=== PATIENT | male | born 1980 | race Caucasian/White ===

== ENCOUNTER 2018-11-09 15:37 | Emergency (ER) | payer OTHER ==
[2018-11-09] MEDS ORDERED: SODIUM CHLORIDE 1,000 ML IV STA (15:49)
[2018-11-09] MEDS ORDERED: KETOROLAC TROMETHAMINE 30 MG/1 ML VIAL IVPUSH ONE (15:49)
[2018-11-09 15:50] VITALS: BP 143/85; PULSE 80; TEMP 98.1; BMI 32.0
--- NOTE | 2018-11-09 15:50 | PDOC ---
Rapid Medical Evaluation Chief Complaint: Pain, Acute Time Seen by Provider: 11/09/18 15:45 Medical Evaluation: 11/09/18 15:46 I have performed a brief in-person evaluation of this patient. The patient presents with a chief complaint of:sudden onset severe L flank pain today. No pmhx Pertinent physical exam findings:lorena very uncomfortable, stable I have ordered the following:labs/ua The patient will proceed to the ED for further evaluation. Discharge Disposition - Diagnosis Left flank pain - Referrals - Patient Instructions - Post Discharge Activity
[2018-11-09] MEDS ORDERED: KETOROLAC TROMETHAMINE 30 MG/1 ML VIAL ONE (15:56)
[2018-11-09 16:08] LABS: BASO % 0.2 % (0-2.0); EOS % 0.1 % (0-4.5); HEMATOCRIT 43.7 % (35.4-49); HEMOGLOBIN 15.4 GM/dL (11.7-16.9); MCH 30.7 pg (25.7-33.7); MCHC 35.3 g/dl (32.0-35.9); MEAN PLT VOLUME 9.1 fl (7.5-11.1); MONO % 4.9 % (3.8-10.2); NEUT % 84.8 % (42.8-82.8); PLATELET COUNT 234 K/MM3 (134-434); RBC 5.02 M/mm3 (4.00-5.60); RDW 12.1 % (11.9-15.9); WHITE BLOOD COUNT 14.1 K/mm3 (4.0-10.0)
[2018-11-09 16:51] LABS: ALBUMIN 4.4 g/dl (3.4-5.0); ALK PHOS 94 U/L (45-117); ANION GAP 8 MMOL/L (8-16); BILIRUBIN,TOTAL 0.6 mg/dL (0.2-1); BLOOD UREA NITROGEN 20 mg/dL (7-18); CALCIUM 9.1 mg/dL (8.5-10.1); CHLORIDE 101 mmol/L (98-107); CO2 27 mmol/L (21-32); CREATININE 1.2 mg/dL (0.55-1.3); GLUCOSE,RANDOM 96 mg/dL (74-106); SGPT/ALT 30 U/L (13-61); SODIUM 136 mmol/L (136-145); TOT PROT 7.8 g/dl (6.4-8.2)
[2018-11-09 16:52] LABS: POTASSIUM 4.1 mmol/L (3.5-5.1); SGOT/AST 34 U/L (15-37)
[2018-11-09 17:59] LABS: URINE APPEARANCE CLEAR; URINE BILIRUBIN NEGATIVE (<2.0 mg/dL); URINE COLOR YELLOW; URINE GLUCOSE (UA) NEGATIVE (NEGATIVE); URINE KETONE TRACE (NEGATIVE); URINE LEUK ESTERASE NEGATIVE (NEGATIVE); URINE NITRITE NEGATIVE (NEGATIVE); URINE PROTEIN 1+ (NEGATIVE); URINE UROBILINOGEN NEGATIVE mg/dL (0.2-1.0)
[2018-11-09 18:05] LABS: URINE MUCUS RARE
--- NOTE | 2018-11-09 18:42 | PDOC ---
History of Present Illness - General Chief Complaint: Pain, Acute Stated Complaint: LT SIDE ABD PAIN Time Seen by Provider: 11/09/18 15:45 History Source: Patient Exam Limitations: No Limitations - History of Present Illness Initial Comments: 11/09/18 18:38 38-year-old male no past medical history here today complaining of left flank and left lower quadrant pain. Patient states his symptoms started earlier today initially was in the left lower back area was dull and achy but then became very sharp radiating to his groin. Patient states the pain was severe not worse with any certain movements no fever no chills did have nausea but no vomiting. Denies any hematuria or other dysuria. He does have an episode several months ago when he had painless hematuria. He did see Saúl Grant for that and was evaluated renal ultrasound which was unremarkable. He does also report that he had a colonoscopy performed one week ago which was also unremarkable Past History - Past Medical History Allergies/Adverse Reactions: Allergies Allergy/AdvReac Type Severity Reaction Status Date / Time No Known Allergies Allergy Verified 11/09/18 15:51 Home Medications: Ambulatory Orders Ibuprofen [Motrin -] 600 mg PO TID PRN #90 tablet MDD 3 11/09/18 - Suicide/Smoking/Psychosocial Hx Smoking History: Never smoked Have you smoked in the past 12 months: No Information on smoking cessation initiated: No Hx Alcohol Use: No Drug/Substance Use Hx: No Review of Systems - Review of Systems Constitutional: No: Diaphoresis HEENTM: No: Eye Pain Respiratory: No: Cough, Orthopnea Cardiac (ROS): No: Chest Pain, Edema Musculoskeletal: Yes: Back Pain. No: Gout All Other Systems: Reviewed and Negative *Physical Exam - Vital Signs Last Vital Signs Temp Pulse Resp BP Pulse Ox 98.1 F 80 20 143/85 98 11/09/18 15:45 11/09/18 15:45 11/09/18 15:45 11/09/18 15:45 11/09/18 15:45 - Physical Exam General Appearance: Yes: Nourished Neck: positive: Trachea midline Respiratory/Chest: positive: Lungs Clear, Normal Breath Sounds Cardiovascular: positive: Regular Rhythm, Regular Rate, S1, S2. negative: Edema Gastrointestinal/Abdominal: positive: Normal Bowel Sounds, Flat, Soft. negative : Tender Musculoskeletal: negative: CVA Tenderness Integumentary: positive: Normal Color, Dry, Warm Neurologic: positive: Fully Oriented, Alert, Normal Mood/Affect Moderate Sedation - Procedure Monitoring Vital Signs: Procedure Monitoring Vital Signs Temperature 98.1 F 11/09/18 15:45 Pulse Rate 80 11/09/18 15:45 Respiratory Rate 20 11/09/18 15:45 Blood Pressure 143/85 11/09/18 15:45 O2 Sat by Pulse Oximetry (%) 98 11/09/18 15:45 ED Treatment Course - LABORATORY CBC & Chemistry Diagram: 11/09/18 15:55 11/09/18 15:55 - ADDITIONAL ORDERS Additional order review: Laboratory Results 11/09/18 11/09/18 17:50 15:55 Sodium 136 Potassium 4.1 Chloride 101 Carbon Dioxide 27 Anion Gap 8 BUN 20 H Creatinine 1.2 Creat Clearance w eGFR > 60 Random Glucose 96 Calcium 9.1 Total Bilirubin 0.6 AST 34 ALT 30 Alkaline Phosphatase 94 Total Protein 7.8 Albumin 4.4 Urine Color Yellow Urine Appearance Clear Urine pH 6.0 Ur Specific [place] 1.031 Urine Protein 1+ H Urine Glucose (UA) Negative Urine Ketones Trace H Urine Blood 2+ H Urine Nitrite Negative Urine Bilirubin Negative Urine Urobilinogen Negative Ur Leukocyte Esterase Negative Urine WBC (Auto) None Urine RBC (Auto) 46 Urine Mucus Rare 11/09/18 15:55 RBC 5.02 MCV 87.0 MCHC 35.3 RDW 12.1 MPV 9.1 Neutrophils % 84.8 H Lymphocytes % 10.0 Monocytes % 4.9 Eosinophils % 0.1 Basophils % 0.2 - Medications Given in the ED: ED Medications Discontinued Medications Generic Name Dose Route Start Last Admin Trade Name Freq PRN Reason Stop Dose Admin Sodium Chloride 1,000 mls @ 1,000 mls/hr 11/09/18 15:49 11/09/18 17:42 Normal Saline - IV 11/09/18 16:48 1,000 mls/hr ASDIR STA Administration Ketorolac Tromethamine 30 mg 11/09/18 15:49 11/09/18 16:03 Toradol Injection - IVPUSH 11/09/18 15:50 30 mg ONCE ONE Administration Medical Decision Making - Medical Decision Making 11/09/18 18:41 38-year-old male no past medical history here today complaining of left flank pain. Minimal tenderness on exam patient was ordered for CT abdomen and pelvis and labs by rapid medical evaluation in triage. CT is pending differential includes renal colic UTI pyelonephritis MSK back strain less likely to be diverticulitis with the absence of tenderness on exam. CT is noted for a 3 mm left UVJ stone minimal hydro-agents UAs negative for infection showing only hematuria microscopically. We'll likely be discharged home with pain medication to follow up with outpatient with his no urologist Dr. Saúl grant 11/09/18 18:48 urology paged. *DC/Admit/Observation/Transfer Diagnosis at time of Disposition: Left flank pain, Ureter colic - Discharge Dispostion Disposition: HOME Condition at time of disposition: Good Decision to Admit order: No - Prescriptions Prescriptions: Ibuprofen [Motrin -] 600 mg PO TID PRN #90 tablet MDD 3 PRN Reason: Pain - Referrals Referrals: Adriel Topete MD [Primary Care Provider] - Damion Topete MD [Staff Physician] - - Patient Instructions Printed Discharge Instructions: Kidney Stones -- Adult Additional Instructions: you should drink plenty of fluids. follow up with Dr Topete tomorrow at 10 am. you should strain your urine to catch a stone . if you catch. place in urine cup and bring to your urologist for evaluation. return for inability to urinate , fevers, persistant vomiting or any concerns. you can take ibuprofen 600 mg every 8 hrs as needed for pain. take with food. - Post Discharge Activity Forms/Work/School Notes: Back to Work
== END 2018-11-09 20:40 | disposition home or self-care (01) ==
LOC: JER 15:37
PROC: 3E0333Z Introduction of Anti-inflammatory into Peripheral Vein, Percutaneous Approach (ICD-10-PCS; principal; 2018-11-09)
PROC: 3E0337Z Introduction of Electrolytic and Water Balance Substance into Peripheral Vein, Percutaneous Approach (ICD-10-PCS; 2018-11-09)
DX: N23 Unspecified renal colic (principal)
CPT/HCPCS: 36415; 74176-TC; 80053; 81003; 81015; 85025; 87086; 99282-25; J7030

== ENCOUNTER 2022-06-25 05:48 | Observation (INO) | payer OTHER ==
[2022-06-25] MEDS ORDERED: ACETAMINOPHEN 1000 MG/100 ML BAG IVPB ONE (06:10)
[2022-06-25] MEDS ORDERED: LACTATED RINGERS SOLUTION 1000 ML INFUS.BAG IV ONE (06:14)
[2022-06-25] MEDS ORDERED: ACETAMINOPHEN INJECTION 100 ML IVPB ONE (06:17)
[2022-06-25 07:02] LABS: VENOUS BASE EXCESS 1.7 mmol/L (-2-2); VENOUS O2 SATURATION 81.9 % (70-80); VENOUS PCO2 45.6 mmHg (38-52); VENOUS PH 7.393 (7.310-7.410)
[2022-06-25 07:14] LABS: HEMATOCRIT 43.3 % (35.4-49); HEMOGLOBIN 14.5 GM/dL (11.7-16.9); MCH 28.7 pg (25.7-33.7); MCHC 33.4 g/dl (32.0-35.9); MEAN CELL VOLUME 85.9 fl (80-96); MEAN PLT VOLUME 9.3 fl (7.5-11.1); PLATELET COUNT 197 10^3/uL (134-434); RBC 5.04 M/mm3 (4.00-5.60); RDW 12.7 % (11.9-15.9); WHITE BLOOD COUNT 13.7 K/mm3 (4.0-10.0)
[2022-06-25] MEDS ORDERED: AZITHROMYCIN IVPB 500 MG in DEXTROSE 5%-WATER - 250 ML IVPB ONE (07:23)
[2022-06-25] MEDS ORDERED: CEFTRIAXONE 1,000 MG in DEXTROSE 5%-WATER - 50 ML IVPB ONE (07:23)
[2022-06-25 07:24] LABS: INR 1.27 (0.83-1.09); PROTHROMBIN TIME (PATIENT) 14.6 SEC (9.7-13.0)
[2022-06-25 07:25] LABS: CHLORIDE 105 mmol/L (98-107); SODIUM 139 mmol/L (136-145)
[2022-06-25] MEDS ORDERED: CEFTRIAXONE 1 GM/50 ML BAG ONE ×2 (07:26→07:32)
[2022-06-25] MEDS ORDERED: AZITHROMYCIN IVPB 500 MG/250 ML BAG IVPB ONE (07:26)
[2022-06-25 07:27] LABS: ACTIVATED PTT 30.9 SECONDS (25.2-36.5); ALBUMIN 3.1 g/dl (3.4-5.0); ANION GAP 7 MMOL/L (8-16); BLOOD UREA NITROGEN 13.5 mg/dL (7-18); CALCIUM 8.8 mg/dL (8.5-10.1); CO2 27 mmol/L (21-32); GLUCOSE,RANDOM 141 mg/dL (74-106)
[2022-06-25 07:30] LABS: CREATININE 1.1 mg/dL (0.55-1.3); SGOT/AST 14 U/L (15-37); SGPT/ALT 20 U/L (13-61)
[2022-06-25 07:32] LABS: BILIRUBIN,TOTAL 0.9 mg/dL (0.2-1); TOT PROT 6.9 g/dl (6.4-8.2)
[2022-06-25 07:33] LABS: ALK PHOS 83 U/L (45-117)
[2022-06-25 07:35] LABS: N-TERMINAL BNP 141.3 pg/ml (5-125)
[2022-06-25 08:57] LABS: ANISOCYTOSIS 0; HELMET CELLS 0; HOWELL-JOLLY BODIES 0; MACROCYTOSIS 0; OVALOCYTE 0; ROULEAU 0; SICKELED CELLS 0; TARGET CELLS 0; TEAR DROP CELLS 0; TOXIC GRANULATION 0
[2022-06-25 11:21] LABS: EPI CELLS 5 /uL (0-25.1); HYALINE CASTS 1 /uL (0-3.1); URINE APPEARANCE CLEAR; URINE BACTERIA 0 /uL (0-1359); URINE BILIRUBIN NEGATIVE (NEGATIVE); URINE COLOR YELLOW; URINE GLUCOSE (UA) NEGATIVE (NEGATIVE); URINE KETONE 1+ (NEGATIVE); URINE LEUK ESTERASE NEGATIVE (NEGATIVE); URINE NITRITE NEGATIVE (NEGATIVE); URINE PROTEIN 1+ (NEGATIVE); URINE RBC 15 /uL (0-23.9); URINE UROBILINOGEN 0.2 mg/dL (0.2-1.0); URINE WBC 5 /uL (0-25.8)
[2022-06-25 12:03] VITALS: BMI 25.1
[2022-06-25] MEDS ORDERED: ACETAMINOPHEN 325 MG TABLET (FP) PO PRN ×2 (12:07→17:05)
[2022-06-25] MEDS ORDERED: guaiFENesin 200 MG/10 ML 10 ML UNIT-DOSE CUPS PO PRN (12:10)
[2022-06-25] MEDS ORDERED: IBUPROFEN 600 MG TABLET (FP) PO PRN (17:05)
[2022-06-26 08:15] LABS: HEMATOCRIT 38.7 % (35.4-49); HEMOGLOBIN 13.1 GM/dL (11.7-16.9); MCH 29.3 pg (25.7-33.7); MCHC 33.8 g/dl (32.0-35.9); MEAN CELL VOLUME 86.6 fl (80-96); PLATELET COUNT 205 10^3/uL (134-434); RBC 4.47 M/mm3 (4.00-5.60); RDW 12.7 % (11.9-15.9); WHITE BLOOD COUNT 11.4 K/mm3 (4.0-10.0)
[2022-06-26 08:47] LABS: ALBUMIN 2.7 g/dl (3.4-5.0); BLOOD UREA NITROGEN 12.6 mg/dL (7-18); CALCIUM 8.6 mg/dL (8.5-10.1)
[2022-06-26 08:49] LABS: CREATININE 0.9 mg/dL (0.55-1.3)
[2022-06-26 08:51] LABS: BILIRUBIN,TOTAL 0.5 mg/dL (0.2-1); TOT PROT 6.1 g/dl (6.4-8.2)
[2022-06-26] MEDS: CEFTRIAXONE 2 GM in DEXTROSE 5%-WATER 100 ML IVPB SCH (09:46)
[2022-06-26] MEDS: AZITHROMYCIN 250 MG TABLET PO SCH (09:47)
[2022-06-26] MEDS ORDERED: CEFTRIAXONE 1 GM in DEXTROSE 5%-WATER - 50 ML IVPB SCH (10:00)
[2022-06-26 11:49] LABS: HIV INTERPRETATION NEGATIVE (NEGATIVE)
[2022-06-26 22:18] VITALS: RESP 18
[2022-06-27] MEDS: CEFTRIAXONE 2 GM in DEXTROSE 5%-WATER 100 ML IVPB SCH (10:16)
[2022-06-27] MEDS: AZITHROMYCIN 250 MG TABLET PO SCH (10:16)
[2022-06-28] MEDS: AZITHROMYCIN 250 MG TABLET PO SCH (10:22)
[2022-06-28] MEDS: CEFTRIAXONE 2 GM in DEXTROSE 5%-WATER 100 ML IVPB SCH (10:22)
[2022-06-28 14:24] VITALS: BP 123/82; PULSE 78; TEMP 99
== END 2022-06-28 15:20 | disposition home or self-care (01) ==
LOC: JER 05:48 → UNDOADMOB 07:44 → JERBED 07:44 → J7W 11:30 → OBSVTOIN 12:14 → INTOOBSV 12:14 → J7W 06-26 11:49 → JERBED 06-26 11:49 → J7W 06-26 12:27
PROVIDERS: ADMIT Internal Medicine; ATTEND Internal Medicine
PROC: 3E03329 Introduction of Other Anti-infective into Peripheral Vein, Percutaneous Approach (ICD-10-PCS; principal; 2022-06-26)
PROC: 3E033NZ Introduction of Analgesics, Hypnotics, Sedatives into Peripheral Vein, Percutaneous Approach (ICD-10-PCS; 2022-06-26)
DX: U07.1 COVID-19 (principal); J12.82 Pneumonia due to coronavirus disease 2019; R05.9 Cough, unspecified; R50.9 Fever, unspecified; M79.10 Myalgia, unspecified site
CPT/HCPCS: 0241U-QW; 36415; 71045-TC-FY; 80053; 81003; 82550; 82553; 82803; 83605; 83880; 84484; 85025; 85027; 85610; 85730; 86140; 86850; 86900; 86901; 87040; 87070; 87086; 87205; 87389; 87633; 87899; 93005; 93010; 96365; 96367; 96368; 96375; 99285-25; G0378